=== PATIENT | female | born 1990 ===

== ENCOUNTER → 2016-12-04 | Outpatient (CLI) | payer BC | END | disposition home or self-care (01) | LOC: C.PAPS 10:09 | PROVIDERS: ATTEND Obstetrics & Gynecology | DX: Z01.419 Encounter for gynecological examination (general) (routine) without abnormal findings (principal) ==

== ENCOUNTER 2019-03-01 21:46 | Inpatient (IN) ==
[2019-03-01] MEDS ORDERED: LACTATED RINGER'S 1,000 ML IV PRN (23:13)
[2019-03-01 23:38] LABS: Hematocrit (blood only) 35.1 % (37-47); Hemoglobin 12.6 g/dL (12.0-16.0); Mean Corpuscular Volume 88.2 fL (80-100); Mean Platelet Volume 9.4 fL (7.4-10.4); Platelet Count 314 K/uL (130-400); RDW Coefficient of Variation 11.9 % (11.5-14.5); RDW Standard Deviation 38.3 fL (36.4-46.3); Red Blood Count 3.98 M/uL (4.2-5.4); White Blood Count 11.02 K/uL (4.8-10.8)
[2019-03-01 23:39] LABS: Mean Corpuscular Hgb Conc 35.9 g/dL (32-36)
[2019-03-02] MEDS: LACTATED RINGER'S 1,000 ML IV SCH ×3 (02:20→15:05)
[2019-03-02] MEDS: BUTORPHANOL TARTRATE 2 MG/ML VIAL IV PRN ×2 (02:28→03:48)
[2019-03-02] MEDS ORDERED: ePHEDrine sulfate 50 MG/ML AMP ONE (07:31)
[2019-03-02] MEDS ORDERED: BUPIVACAINE 0.25% 30 ML VIAL ONE (07:31)
[2019-03-02] MEDS ORDERED: fentaNYL citrate 100 MCG/2 ML VIAL ONE (07:31)
[2019-03-02] MEDS ORDERED: fentaNYL 2MCG/ML ROPIV 1.25MG/ML 100 ML BAG EPI ONE (07:32)
--- NOTE | 2019-03-02 08:41 | Anesthesiology Consultation ---
Date of Service March 02, 2019 Assessment & Plan (1) Encounter for pre-operative examination: Chart Review Chart Review: Acceptable Risk for Labor Epidural Consults Requested none ASA ASA2 Proposed Anesthesia Anesthesia Type: Labor Epidural Risk / Benefits Reviewed With: PT / POA / Parent / Guardian, Accepts Plan and Informed Consent Obtained History Height/Weight Height: 5 ft 1 in Weight: 80.957 kg Allergies Allergy/AdvReac Type Severity Reaction Status Date / Time No Known Drug Allergies AdvReac Unknown Verified 03/01/19 22:08 Medications Home Medications Medication Instructions Recorded Confirmed Last Taken vit 98-[id number]-[id number] 1 tab PO DAILY 03/01/19 03/02/19 02/28/19 21:00 [ + DHA] 1 Active Medications Generic Name Dose Route Start Last Admin Trade Name Freq PRN Reason Stop Dose Admin Butorphanol Tartrate 1 mg 03/02/19 00:20 03/02/19 03:48 Stadol IV 04/01/19 00:19 1 mg Q1HWA PRN Administration Pain Lactated Ringer's 1,000 mls @ 125 mls/hr 03/01/19 23:15 03/02/19 07:51 Lr IV 03/03/19 23:14 125 mls/hr .Q8H SIXTO Administration Past Medical History Medical History Congenital hip dysplasia diagnosed at age 4 [place] teeth removed 2015;2013 Past Family History Family History Grandfather (Paternal) Diabetes Past Surgical History Surgical History History of hip replacement 2014 Past Anesthesia History No Hx of Anesthesia Complications and No Family Hx of Anesthesia Complications History of PONV No Motion Sickness Screening History of Motion Sickness: No Social History Smoking Status: Never smoker Do You Dip or Chew Tobacco: No Hx Alcohol Use: No Hx Substance Use: No substance use type: does not use Exercise / Class Metabolic Activity II 4-5 Yardwork/Stairs/Walk up hill Physical Exam Vital Signs Last Vital Signs Temp 98.4 F 03/02/19 07:12 Pulse 93 H 03/02/19 08:38 Resp 20 03/02/19 07:12 BP 115/74 03/02/19 08:03 Pulse Ox 93 03/02/19 08:38 ENMT Mouth: no dentition abnormality Thyromental Distance: > or= 3.5 Finger Breadths Mallampati Class: II Neck normal visual inspection Respiratory normal respiratory effort Auscultation: lungs clear to auscultation bilaterally Cardiovascular Rate/Rhythm: regular rate and regular rhythm Testing Laboratory Results 03/01/19 23:31
[2019-03-02] MEDS ORDERED: NALOXONE HCL 0.4 MG/1 ML VIAL/CARP IV PRN ×2 (09:03→16:50)
[2019-03-02] MEDS ORDERED: fentaNYL 2MCG/ML ROPIV 1.25MG/ML 100 ML BAG EPI PRN (09:03)
[2019-03-02] MEDS ORDERED: NALBUPHINE HCL INJ 10 MG/ML AMP IV PRN ×2 (09:03→16:50)
[2019-03-02] MEDS ORDERED: ePHEDrine sulfate 50 MG/ML AMP IV PRN ×2 (09:03→16:50)
[2019-03-02] MEDS ORDERED: DiphenhydrAMINE HCL 50 MG/ML VIAL IV PRN ×2 (09:03→16:50)
[2019-03-02] MEDS ORDERED: NALOXONE HCL 1 MG in SODIUM CHLORIDE 0.9% 1000ML 1,000 ML IV PRN ×2 (09:03→16:50)
[2019-03-02] MEDS ORDERED: LACTATED RINGER'S 1,000 ML IV PRN ×2 (09:03→09:51)
[2019-03-02] MEDS ORDERED: ONDANSETRON INJ 2 MG/ML 2 ML VIAL IV PRN ×2 (09:03→16:50)
[2019-03-02] MEDS ORDERED: OXYTOCIN 30 UNITS/500 ML BAG IV PRN (09:51)
[2019-03-02] MEDS ORDERED: CITRIC ACID/SODIUM CITRATE 15 ML UDC ONE (15:31)
[2019-03-02] MEDS ORDERED: OXYTOCIN 10 UNITS/ML VIAL ONE ×2 (15:50→16:53)
[2019-03-02] MEDS ORDERED: LIDOCAINE/EPINEPHRINE 2% 1:200,000 20 ML SDV ONE (15:50)
[2019-03-02] MEDS ORDERED: LACTATED RINGER'S 1,000 ML IV SCH ×3 (16:00→17:30)
[2019-03-02] MEDS ORDERED: cefOXitin 2,000 MG in DEXTROSE 5% 50 ML IV SCH (16:15)
[2019-03-02] MEDS ORDERED: MoRPHine SULFATE PF 1 MG/ML 10 ML AMP/VIAL ONE (16:35)
[2019-03-02] MEDS ORDERED: NALOXONE HCL 0.08 MG in SYRINGE 1.8 ML IV PRN (16:50)
[2019-03-02] MEDS ORDERED: MEPERIDINE HCL 25 MG/ML CARP IV PRN (16:50)
[2019-03-02] MEDS ORDERED: MoRPHine SULFATE PF 1 MG/ML 10 ML AMP/VIAL INT SPINAL ONE (16:50)
[2019-03-02] MEDS ORDERED: LACTATED RINGER'S 500 ML IV PRN (16:50)
[2019-03-02] MEDS ORDERED: DC INTRASPINAL MORPHINE SCH (17:00)
[2019-03-02] MEDS ORDERED: NO NARCOTICS OR SEDATIVES SCH (17:00)
[2019-03-02] MEDS ORDERED: SODIUM CHLORIDE 0.9% 1000ML 1,000 ML IV SCH (17:00)
[2019-03-02] MEDS ORDERED: DIPHTHERIA/TETANUS/PERTUSSIS 0.5 ML SYR/VIAL IM ONE (17:23)
[2019-03-02] MEDS ORDERED: SENNA 8.6 MG TAB PO PRN (17:23)
[2019-03-02] MEDS ORDERED: HYDROCORTISONE ACETATE 25 MG SUPP PR PRN (17:23)
[2019-03-02] MEDS ORDERED: MEPERIDINE HCL 50 MG/ML CARP IV PRN (17:23)
[2019-03-02] MEDS ORDERED: MAGNESIUM HYDROXIDE SUSP 30 ML UDC PO PRN (17:23)
[2019-03-02] MEDS ORDERED: SUPERCREAM 0.870% 15 GM JAR EXT PRN (17:23)
[2019-03-02] MEDS ORDERED: BENZOCAINE 20% AER SPR 82.5 GM CAN EXT PRN (17:23)
--- NOTE | 2019-03-02 17:23 | Post Operative Brief Note ---
Immediate Post Op Note v1 Date of Surgery March 02, 2019 cephalopelvic disproportion non reassuring heart rate Pre & Post Diagnosis Operation Date: 03/02/19 15:55 <No data on this case meets the specified criteria> cephalopelvic disproportion nonreassuring heart rate Procedure primary low segment cesareansection Operation Date: 03/02/19 15:55 <No data on this case meets the specified criteria> Surgeon Estevan Shay MD [employer] clark Estimated Blood Loss 600 Findings Consistent with Post-Op Diagnosis
--- NOTE | 2019-03-02 17:29 | Anesthesiology Progress Note ---
Date of Service March 02, 2019 Anesthesia Post Procedure Vital Signs Vital Signs: Temp Pulse Resp BP Pulse Ox 03/02/19 17:26 113 H 123/69 03/02/19 17:23 125 H 79 L 03/02/19 16:13 96 H 20 98 03/02/19 16:08 101 H 98 03/02/19 16:03 100 H 99 03/02/19 16:02 96 H 125/80 03/02/19 15:58 97 H 100 03/02/19 15:53 100 H 99 03/02/19 15:48 113 H 97 03/02/19 15:47 98 H 115/77 03/02/19 15:34 96 H 94 03/02/19 15:33 90 20 100 03/02/19 15:31 87 106/65 03/02/19 15:28 96 H 100 03/02/19 15:23 92 H 100 03/02/19 15:18 82 100 03/02/19 15:16 83 106/62 03/02/19 15:13 95 H 100 03/02/19 15:08 83 100 03/02/19 15:03 88 99 03/02/19 15:02 86 18 105/62 03/02/19 15:00 107 H 89 L 03/02/19 14:58 90 99 03/02/19 14:53 92 H 100 03/02/19 14:48 92 H 126/80 100 03/02/19 14:43 88 100 03/02/19 14:38 88 100 03/02/19 14:33 89 100 03/02/19 14:32 78 20 124/78 93 03/02/19 14:28 78 100 03/02/19 14:23 84 100 03/02/19 14:18 73 100 03/02/19 14:17 74 103/63 03/02/19 14:13 82 100 03/02/19 14:08 83 100 03/02/19 14:03 80 100 03/02/19 14:02 78 20 106/63 03/02/19 13:58 75 100 03/02/19 13:53 81 100 03/02/19 13:52 84 93 03/02/19 13:48 90 100 03/02/19 13:47 85 111/74 03/02/19 13:43 80 100 03/02/19 13:38 93 H 100 03/02/19 13:33 92 H 100 03/02/19 13:31 73 18 113/75 03/02/19 13:28 82 100 03/02/19 13:23 79 100 03/02/19 13:18 83 112/73 99 03/02/19 13:13 85 100 03/02/19 13:08 89 100 03/02/19 13:03 95 H 20 99 03/02/19 13:01 84 117/79 92 03/02/19 12:58 73 100 03/02/19 12:53 91 H 98 03/02/19 12:50 98.2 F 91 H 20 112/73 03/02/19 12:48 91 H 97 03/02/19 12:43 91 H 100 03/02/19 12:39 98 H 89 L 03/02/19 12:38 83 100 03/02/19 12:33 76 115/70 99 03/02/19 12:28 78 98 03/02/19 12:23 73 98 03/02/19 12:18 84 99 03/02/19 12:17 82 110/73 03/02/19 12:13 75 100 03/02/19 12:08 76 100 03/02/19 12:03 69 18 116/73 100 03/02/19 12:02 87 94 03/02/19 11:58 86 100 03/02/19 11:57 66 85 L 03/02/19 11:53 78 100 03/02/19 11:48 71 100 03/02/19 11:46 75 116/76 03/02/19 11:45 79 91 03/02/19 11:43 70 100 03/02/19 11:38 73 99 03/02/19 11:33 67 100 03/02/19 11:31 68 18 115/76 03/02/19 11:28 82 100 03/02/19 11:23 72 100 03/02/19 11:18 71 100 03/02/19 11:17 68 116/73 03/02/19 11:13 76 100 03/02/19 11:12 74 86 L 03/02/19 11:08 74 100 03/02/19 11:03 70 100 03/02/19 11:01 80 20 116/68 03/02/19 11:00 98.1 F 20 03/02/19 10:58 65 99 03/02/19 10:53 67 100 03/02/19 10:48 64 20 116/69 100 03/02/19 10:43 78 100 03/02/19 10:38 76 100 03/02/19 10:33 83 109/58 L 92 03/02/19 10:28 84 100 03/02/19 10:23 70 100 03/02/19 10:18 79 20 109/71 100 03/02/19 10:16 88 93 03/02/19 10:13 80 100 03/02/19 10:08 68 100 03/02/19 10:03 74 110/70 100 03/02/19 09:58 98.1 F 78 20 100 03/02/19 09:53 98 H 100 03/02/19 09:48 84 100 03/02/19 09:43 80 99 03/02/19 09:42 75 18 94/57 L 03/02/19 09:39 75 98/58 L 03/02/19 09:38 73 100 03/02/19 09:33 70 20 105/60 100 03/02/19 09:28 76 100 03/02/19 09:27 71 100/64 03/02/19 09:23 81 103/64 100 03/02/19 09:18 81 100 03/02/19 09:15 75 96/57 L 03/02/19 09:13 75 95/53 L 100 03/02/19 09:11 83 103/57 L 03/02/19 09:09 87 103/58 L 03/02/19 09:08 81 99 03/02/19 09:07 77 20 102/55 L 03/02/19 09:05 91 H 102/64 03/02/19 09:03 90 100/61 97 03/02/19 09:02 84 107/64 03/02/19 08:58 90 98 03/02/19 08:53 99 H 97 03/02/19 08:48 94 H 100 03/02/19 08:43 90 100 03/02/19 08:40 89 92 03/02/19 08:38 93 H 93 03/02/19 08:33 90 92 03/02/19 08:28 91 H 94 04/28/19 08:25 88 92 03/02/19 08:23 86 94 03/02/19 08:19 91 H 94 03/02/19 08:18 96 H 95 03/02/19 08:14 96 H 93 03/02/19 08:13 92 H 95 03/02/19 08:09 91 H 94 03/02/19 08:08 90 96 03/02/19 08:03 96 H 20 115/74 93 03/02/19 07:13 84 120/85 03/02/19 07:12 98.4 F 20 03/02/19 06:14 79 116/80 03/02/19 05:00 98.1 F 20 03/02/19 03:10 86 111/71 03/02/19 03:00 98.2 F 18 03/02/19 02:56 96 H 109/70 03/02/19 02:38 104 H 117/73 03/02/19 02:11 93 H 110/72 03/02/19 01:00 98.2 F 20 03/01/19 22:06 98.4 F 96 H 22 128/77 Pain Intensity Bilateral Abdomen: Pain Intensity: 0 Notes Mental Status: alert / awake / arousable and participated in evaluation Nausea / Vomiting: adequately controlled Pain: adequately controlled Airway Patency, RR, SpO2: stable & adequate BP & HR: stable & adequate Hydration State: stable & adequate Anesthetic Complications: no major complications apparent and Pt Satisfied with anesthetic care
[2019-03-02] MEDS ORDERED: OXYTOCIN 20 UNITS in LACTATED RINGER'S 1,000 ML IV SCH (17:30)
[2019-03-02] MEDS: KETOROLAC 30 MG/ML VIAL IV PRN (19:26)
--- NOTE | 2019-03-02 19:59 | History and Physical Report ---
DATE OF ADMISSION: 03/01/2019 CHIEF COMPLAINT: Intrauterine at term, ruptured membranes, arrest of labor. HISTORY OF PRESENT ILLNESS: The patient is a 28-year-old 1, para 0. She had an uneventful course. Her due date is 02/26/2019. She was admitted with spontaneous rupture of membranes. She contracted unstimulated during the night. Eventually, she got a couple doses of Stadol, the contractions were very painful and she requested and received epidural. At the time she got the epidural, she was still about not quite 2 cm. We then stimulated her labor with IV Pitocin and got her to about 4 cm. She had an arrest of labor at 4 cm, both in dilatation of the cervix in descent of the head at about a 0 station and we had to turn the Pitocin off because of a nonreassuring heart rate tracing with the Pitocin on. She also has a history of left-sided hip problems. She had dysplasia. 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 She had to have a reconstructive procedure done at age 2-1/2 at [facility] and then in 2014, she had total left hip replacement. PAST MEDICAL HISTORY: No known drug allergies. PAST SURGICAL HISTORY: Two hip operations, wisdom teeth. MEDICAL HISTORY: History of rheumatic fever, heart disease, heart murmur, diabetes, tuberculosis. SOCIAL HISTORY: No smoking. No excessive alcohol intake. Works at [employer]. FAMILY HISTORY: Mom is 52 in good health. Father 50 in good health. One brother in good health. REVIEW OF SYSTEMS: HEAD: No symptoms of frequent or severe headaches. EYES: No symptoms of blurred vision, double vision. EARS: No symptoms of frequent ear infection, difficulty hearing. PHYSICAL EXAMINATION: GENERAL: Well-developed, well-nourished 28-year-old white female, alert, oriented x3 and cooperative in no acute distress, appeared her stated age. EYES: Conjunctivae are pink. Sclerae white, no evidence of jaundice. EARS: Had normal light reflex bilaterally. NOSE: Had normal mucosa. Septum is midline. There were no polyps. THROAT: No erythema or evidence of infection. Teeth are in good state of repair. HEAD: Was normocephalic, normal distribution of hair. NECK: Supple. Trachea midline. Thyroid is not enlarged. There is no adenopathy appreciated. Both carotids are of good intensity. CHEST: Clear to auscultation and percussion. No wheezes, rales or rhonchi appreciated. HEART: Regular rhythm. S1, S2 were normal. ABDOMEN: Revealed a term size fetus. There was no CVA tenderness. PELVIC: 0 station, vertex. Cervix 100% effaced, 4 cm. MUSCULOSKELETAL: No calf tenderness. She had a scar on her left hip. IMPRESSIONS OF THIS CASE: Status post 2 major hip surgeries, status post wisdom teeth removal and cephalopelvic disproportion.
[2019-03-02] MEDS: SIMETHICONE 80 MG CHEW PO SCH (21:12)
[2019-03-02] MEDS: DOCUSATE SODIUM 100 MG CAP PO SCH (21:12)
--- NOTE | 2019-03-02 21:28 | Operative Report ---
DATE OF OPERATION: 03/02/2019 PROCEDURE: Primary low segment section. INDICATIONS FOR SURGERY: Cephalopelvic disproportion, nonreassuring heart rate tracing. PREOPERATIVE DIAGNOSIS: Cephalopelvic disproportion, nonreassuring heart rate tracing. SURGEON: Tre Shay MD MANAGEMENT NURSE RN: Dale Andrew MD ESTIMATED BLOOD LOSS: 700 mL. ANESTHESIA: Epidural. OPERATIVE FINDINGS AND PROCEDURE: The patient was brought to the OR table. Epidural was topped off. Guillaume catheter was inserted aseptically in the bladder, connected to gravity drainage. Compression stockings were applied. Lower abdomen was painted with an alcohol based sterilizing solution, draped in the usual sterile fashion. Adequacy of the anesthesia was checked and found to be good. A Pfannenstiel incision was then made and carried down to the anterior fascia by sharp dissection. Hemostasis was secured by electrocauterization. Fascia was incised transversely from the underlying muscle by blunt and sharp dissection. Recti muscles were in the midline. Peritoneum was carefully raised and entered. Then a bladder blade was used to retract the bladder. Incision was made above the vesicouterine fold. The bladder was undermined bluntly. Retractor was used to retract the top of the bladder. Lower uterine segment was scored with a knife and then entered with scissors. Incision was extended laterally with 2 hands. Cloud Security Architect's hand was inserted into the uterine cavity. The head was delivered through the incision. With fundal pressure, the body was delivered. was suctioned through the mouth and the nose. Cord was clamped and cut. Infant was attended by the chips screen tender who was present and scrubbed at the time of delivery. Cord blood was taken. The placenta was removed manually. Uterus, tubes, and ovaries were brought out through the incision. The angles of the myometrial defect were tagged with a ring forceps. A 10 units of Pitocin was injected into the uterus. The myometrial layer was approximated with a continuous interlocking suture of chromic catgut. Then the fascia was approximated in a separate layer with a continuous layer of heavy Vicryl. Two interrupted [id number] sutures of heavy Vicryl were used to complete hemostasis, one in the center of the defect and one just to the left side. Then the peritoneal edges were restored with a continuous plain suture. This restored the integrity of the vesicouterine fold. The pelvis was cleansed of all blood clots and debris. Uterus, tubes, and ovaries were reinserted into the abdominal cavity. Packs were removed and then a careful anatomical approximation of the anterior abdominal wall was performed. Peritoneum was closed with a mattress suture of chromic catgut. Recti muscles were approximated with interrupted [id number] suture of chromic catgut. The fascia was closed with continuous interlocking suture of Vicryl on each side, tied in the midline. SubQ was approximated with a running plain. The skin edges were approximated with staple clips. The patient tolerated these procedures well and left the OR in good condition. I attest to the content of the Intraoperative Record and any orders documented therein. Any exception s are noted below.
[2019-03-03] MEDS: KETOROLAC 30 MG/ML VIAL IV PRN ×2 (04:12→10:22)
[2019-03-03] MEDS ORDERED: CITRIC ACID/SODIUM CITRATE 15 ML UDC PO SCH (06:00)
--- NOTE | 2019-03-03 07:22 | Anesthesiology Progress Note ---
Date of Service March 03, 2019 Anesthesia Post Procedure Vital Signs Vital Signs: Temp Pulse Pulse Resp BP BP Pulse Ox 03/03/19 05:35 18 99 03/03/19 04:30 36.7 C 100 H 18 110/70 99 03/03/19 03:39 16 100 03/03/19 02:30 18 99 03/03/19 01:30 18 99 03/03/19 00:09 36.8 C 94 H 18 102/68 99 03/02/19 23:00 18 96 03/02/19 22:00 36.9 C 106 H 18 108/68 96 03/02/19 21:00 36.8 C 88 18 104/68 96 03/02/19 20:04 102 H 134/70 96 03/02/19 19:59 99 H 96 03/02/19 19:54 103 H 93 03/02/19 19:52 102 H 94 03/02/19 19:49 93 H 95 03/02/19 19:44 95 H 119/70 96 03/02/19 19:39 99 H 97 03/02/19 19:34 93 H 18 116/73 98 03/02/19 19:29 95 H 98 03/02/19 19:24 96 H 125/77 98 03/02/19 19:19 97 H 98 03/02/19 19:14 98 H 122/73 96 03/02/19 19:09 97 H 99 03/02/19 19:04 102 H 18 120/67 99 03/02/19 18:59 108 H 98 03/02/19 18:54 108 H 122/72 100 03/02/19 18:49 116 H 98 03/02/19 18:44 103 H 120/76 99 03/02/19 18:39 94 H 98 03/02/19 18:35 36.5 C 94 H 16 98 03/02/19 18:34 95 H 15 110/58 L 98 03/02/19 18:29 97 H 98 03/02/19 18:28 15 03/02/19 18:24 101 H 116/58 L 100 03/02/19 18:20 122 H 68 L 03/02/19 18:19 123 H 97 03/02/19 18:18 22 03/02/19 18:14 123 H 75 L 03/02/19 18:09 123 H 100 03/02/19 18:08 18 03/02/19 18:04 119 H 117/65 98 03/02/19 18:01 111 H 90 03/02/19 17:58 117 H 20 91 03/02/19 17:54 112 H 78 L 03/02/19 17:53 112 H 100 03/02/19 17:48 120 H 99 03/02/19 17:44 151 H 117/57 L 03/02/19 17:43 128 H 99 03/02/19 17:38 107 H 18 99 03/02/19 17:34 126 H 116/73 03/02/19 17:33 117 H 94 03/02/19 17:28 36.9 C 120 H 20 98 03/02/19 17:26 113 H 123/69 03/02/19 17:23 125 H 79 L 03/02/19 16:13 96 H 20 98 03/02/19 16:08 101 H 98 03/02/19 16:03 100 H 99 03/02/19 16:02 96 H 125/80 03/02/19 15:58 97 H 100 03/02/19 15:53 100 H 99 03/02/19 15:48 113 H 97 03/02/19 15:47 98 H 115/77 03/02/19 15:34 96 H 94 03/02/19 15:33 90 20 100 03/02/19 15:31 87 106/65 03/02/19 15:28 96 H 100 03/02/19 15:23 92 H 100 03/02/19 15:18 82 100 03/02/19 15:16 83 106/62 03/02/19 15:13 95 H 100 03/02/19 15:08 83 100 03/02/19 15:03 88 99 03/02/19 15:02 86 18 105/62 03/02/19 15:00 107 H 89 L 03/02/19 14:58 90 99 03/02/19 14:53 92 H 100 03/02/19 14:48 92 H 126/80 100 03/02/19 14:43 88 100 03/02/19 14:38 88 100 03/02/19 14:33 89 100 03/02/19 14:32 78 20 124/78 93 03/02/19 14:28 78 100 03/02/19 14:23 84 100 03/02/19 14:18 73 100 03/02/19 14:17 74 103/63 03/02/19 14:13 82 100 03/02/19 14:08 83 100 03/02/19 14:03 80 100 03/02/19 14:02 78 20 106/63 03/02/19 13:58 75 100 03/02/19 13:53 81 100 03/02/19 13:52 84 93 03/02/19 13:48 90 100 03/02/19 13:47 85 111/74 03/02/19 13:43 80 100 03/02/19 13:38 93 H 100 03/02/19 13:33 92 H 100 03/02/19 13:31 73 18 113/75 03/02/19 13:28 82 100 03/02/19 13:23 79 100 03/02/19 13:18 83 112/73 99 03/02/19 13:13 85 100 03/02/19 13:08 89 100 03/02/19 13:03 95 H 20 99 03/02/19 13:01 84 117/79 92 03/02/19 12:58 73 100 03/02/19 12:53 91 H 98 03/02/19 12:50 36.8 C 91 H 20 112/73 03/02/19 12:48 91 H 97 03/02/19 12:43 91 H 100 03/02/19 12:39 98 H 89 L 03/02/19 12:38 83 100 03/02/19 12:33 76 115/70 99 03/02/19 12:28 78 98 03/02/19 12:23 73 98 03/02/19 12:18 84 99 03/02/19 12:17 82 110/73 03/02/19 12:13 75 100 03/02/19 12:08 76 100 03/02/19 12:03 69 18 116/73 100 03/02/19 12:02 87 94 03/02/19 11:58 86 100 03/02/19 11:57 66 85 L 03/02/19 11:53 78 100 03/02/19 11:48 71 100 03/02/19 11:46 75 116/76 03/02/19 11:45 79 91 03/02/19 11:43 70 100 04/28/19 11:38 73 99 03/02/19 11:33 67 100 03/02/19 11:31 68 18 115/76 03/02/19 11:28 82 100 03/02/19 11:23 72 100 03/02/19 11:18 71 100 03/02/19 11:17 68 116/73 03/02/19 11:13 76 100 03/02/19 11:12 74 86 L 03/02/19 11:08 74 100 03/02/19 11:03 70 100 03/02/19 11:01 80 20 116/68 03/02/19 11:00 36.7 C 20 03/02/19 10:58 65 99 03/02/19 10:53 67 100 03/02/19 10:48 64 20 116/69 100 03/02/19 10:43 78 100 03/02/19 10:38 76 100 03/02/19 10:33 83 109/58 L 92 03/02/19 10:28 84 100 03/02/19 10:23 70 100 03/02/19 10:18 79 20 109/71 100 03/02/19 10:16 88 93 03/02/19 10:13 80 100 03/02/19 10:08 68 100 03/02/19 10:03 74 110/70 100 03/02/19 09:58 36.7 C 78 20 100 03/02/19 09:53 98 H 100 03/02/19 09:48 84 100 03/02/19 09:43 80 99 03/02/19 09:42 75 18 94/57 L 03/02/19 09:39 75 98/58 L 03/02/19 09:38 73 100 03/02/19 09:33 70 20 105/60 100 03/02/19 09:28 76 100 03/02/19 09:27 71 100/64 03/02/19 09:23 81 103/64 100 03/02/19 09:18 81 100 03/02/19 09:15 75 96/57 L 03/02/19 09:13 75 95/53 L 100 03/02/19 09:11 83 103/57 L 03/02/19 09:09 87 103/58 L 03/02/19 09:08 81 99 03/02/19 09:07 77 20 102/55 L 03/02/19 09:05 91 H 102/64 03/02/19 09:03 90 100/61 97 03/02/19 09:02 84 107/64 03/02/19 08:58 90 98 03/02/19 08:53 99 H 97 03/02/19 08:48 94 H 100 03/02/19 08:43 90 100 03/02/19 08:40 89 92 03/02/19 08:38 93 H 93 03/02/19 08:33 90 92 03/02/19 08:28 91 H 94 03/02/19 08:25 88 92 03/02/19 08:23 86 94 03/02/19 08:19 91 H 94 03/02/19 08:18 96 H 95 03/02/19 08:14 96 H 93 03/02/19 08:13 92 H 95 03/02/19 08:09 91 H 94 03/02/19 08:08 90 96 03/02/19 08:03 96 H 20 115/74 93 Pain Intensity Bilateral Abdomen: Pain Intensity: 1 Notes Mental Status: alert / awake / arousable Patient Amnestic to Procedure: Yes Nausea / Vomiting: adequately controlled Pain: adequately controlled Airway Patency, RR, SpO2: stable & adequate BP & HR: stable & adequate Hydration State: stable & adequate Neuraxial Anesthesia: was administered and sensory block is resolving Anesthetic Complications: no major complications apparent and Pt Satisfied with anesthetic care
[2019-03-03 07:49] LABS: Hematocrit (blood only) 29.9 % (37-47); Hemoglobin 10.4 g/dL (12.0-16.0); Mean Corpuscular Hgb Conc 34.8 g/dL (32-36); Mean Corpuscular Volume 89.3 fL (80-100); Mean Platelet Volume 9.1 fL (7.4-10.4); Platelet Count 243 K/uL (130-400); RDW Coefficient of Variation 11.9 % (11.5-14.5); RDW Standard Deviation 38.9 fL (36.4-46.3); Red Blood Count 3.35 M/uL (4.2-5.4); White Blood Count 12.24 K/uL (4.8-10.8)
[2019-03-03 07:50] LABS: Basophils # (auto) 0.03 K/uL (0-0.2); Basophils % (auto) 0.2 %; Eosinophils # (auto) 0.13 K/uL (0-0.5); Eosinophils % (auto) 1.1 %; Immature Granulocytes # (auto) 0.05 K/uL (0.00-0.02); Immature Granulocytes % (auto) 0.4 %; Lymphocytes # (auto) 1.31 K/uL (1.2-3.4); Lymphocytes % (auto) 10.7 %; Monocytes # (auto) 1.01 K/uL (0.11-0.59); Monocytes % (auto) 8.3 %; Neutrophils # (auto) 9.71 K/uL (1.4-6.5); Neutrophils % (auto) 79.3 %
[2019-03-03] MEDS: SIMETHICONE 80 MG CHEW PO SCH ×4 (09:25→21:22)
[2019-03-03] MEDS: FERROUS SULFATE 325 MG TAB PO SCH ×2 (09:25→10:21)
[2019-03-03] MEDS: PRENATAL VITAMIN 1 TAB PO SCH (09:26)
[2019-03-03] MEDS: DOCUSATE SODIUM 100 MG CAP PO SCH ×2 (10:22→21:22)
[2019-03-03] MEDS ORDERED: MEPERIDINE HCL 50 MG/ML CARP IV PRN (10:50)
[2019-03-03] MEDS ORDERED: PROMETHAZINE HCL 25 MG in SODIUM CHLORIDE 0.9% 50 ML IV PRN (10:50)
[2019-03-03] MEDS ORDERED: KETOROLAC 30 MG/ML VIAL IV PRN (10:51)
[2019-03-03] MEDS ORDERED: ONDANSETRON INJ 2 MG/ML 2 ML VIAL IV PRN (10:51)
[2019-03-03] MEDS ORDERED: DiphenhydrAMINE HCL 50 MG/ML VIAL IV PRN (10:51)
--- NOTE | 2019-03-03 12:07 | Obstetrical Progress Note ---
Date of Service March 03, 2019 Physical Exam Physical Exam: abdomen soft and non tender vaginal bleeding scant to moderate bandage removed incision is clean and dry no calf tenderness ambulating well Results & Data Vital Signs (Past 12 Hours) Vital Signs Temp Pulse Resp BP Pulse Ox 03/03/19 09:30 37.1 C 98 H 14 103/70 98 03/03/19 05:35 18 99 03/03/19 04:30 36.7 C 100 H 18 110/70 99 03/03/19 03:39 16 100 03/03/19 02:30 18 99 03/03/19 01:30 18 99 03/03/19 00:09 36.8 C 94 H 18 102/68 99
[2019-03-03] MEDS: IBUPROFEN 600 MG TAB PO PRN ×3 (14:00→23:30)
[2019-03-03] MEDS: OXYCODONE/ACETAMINOPHEN 5mg/325mg TAB PO PRN ×3 (14:00→23:29)
[2019-03-03] MEDS ORDERED: BISACODYL 5 MG TABEC PO SCH (20:00)
--- OUTSIDE RECORDS SUMMARY | 2019-03-03 22:41 | External Medical Summary | Continuity of Care Document ---
:1990 Author Name Andrew Alejandra, Provider Address Unavailable Unavailable , Care Team Providers Name Role Phone Roger Alejandra, Gerald Jaimes Unavailable [email or web address] [email or web address], UNKNOWN Unavailable Unavailable Unavailable Unavailable Unavailable Problems Dysmenorrhea (625.3) (N94.6) Encounter for gynecological examination without abnormal finding (V72.31) (Z01.419) IUD check up (V25.42) (Z30.431) Allergies and Adverse Reactions No Known Drug Allergies (Allergy) Medications Excedrin Migraine TABS Refills: 0 Ibuprofen CAPS Refills: 0 Ortho-Novum 1/35 (28) 1-35 MG-MCG Oral Tablet; TAKE 1 TABLET EVERY DAY Ny Duran Start: 04-Dec-2016 Quantity: 28 Refills: 12 Procedures History of Oral Surgery Tooth Extraction Status: Completed History of Total Hip Replacement Status: Completed Immunizations Immunizations not documented Social History - Smoking Status Never smoker Plan of Treatment Planned Observations Planned Goals not documented Results No Known Results Results not documented
[2019-03-04] MEDS: OXYCODONE/ACETAMINOPHEN 5mg/325mg TAB PO PRN ×4 (04:23→20:58)
[2019-03-04] MEDS: IBUPROFEN 600 MG TAB PO PRN ×5 (04:23→20:58)
[2019-03-04 07:30] LABS: Hematocrit (blood only) 29.2 % (37-47); Hemoglobin 10.2 g/dL (12.0-16.0)
[2019-03-04] MEDS: SIMETHICONE 80 MG CHEW PO SCH ×3 (08:42→20:58)
[2019-03-04] MEDS: PRENATAL VITAMIN 1 TAB PO SCH (08:42)
[2019-03-04] MEDS: DOCUSATE SODIUM 100 MG CAP PO SCH ×2 (08:43→20:58)
[2019-03-04] MEDS: FERROUS SULFATE 325 MG TAB PO SCH (08:45)
--- NOTE | 2019-03-04 11:01 | Obstetrical Progress Note ---
Date of Service March 04, 2019 Physical Exam Physical Exam: abdomen soft and non tender vaginal bleeding scant to moderate no calf tenderness ambulating well incision is clean and dry Results & Data Vital Signs (Past 12 Hours) Vital Signs Temp Pulse Resp BP Pulse Ox 03/04/19 07:30 36.6 C 88 18 105/70 97 03/03/19 23:05 36.6 C 91 H 18 107/72
[2019-03-04] MEDS ORDERED: BISACODYL 10 MG SUPP PR PRN (17:23)
[2019-03-05] MEDS: IBUPROFEN 600 MG TAB PO PRN ×2 (04:15→09:11)
[2019-03-05] MEDS: OXYCODONE/ACETAMINOPHEN 5mg/325mg TAB PO PRN ×2 (04:16→09:09)
--- NOTE | 2019-03-05 07:30 | Obstetrical Progress Note ---
Date of Service March 05, 2019 Physical Exam Physical Exam: abdomen soft and non tender vaginal bleeding scant to moderate no calf tenderness ambulating well incision is clean and dry Results & Data Vital Signs (Past 12 Hours) Vital Signs Temp Pulse Pulse Resp BP Pulse Ox 03/04/19 23:25 36.7 C 80 18 110/66 98 03/04/19 19:45 36.9 C 92 H 18 103/71 97
[2019-03-05] MEDS: SIMETHICONE 80 MG CHEW PO SCH (09:08)
[2019-03-05] MEDS: PRENATAL VITAMIN 1 TAB PO SCH (09:08)
[2019-03-05] MEDS: FERROUS SULFATE 325 MG TAB PO SCH (09:08)
[2019-03-05] MEDS: DOCUSATE SODIUM 100 MG CAP PO SCH (09:08)
--- NOTE | 2019-03-05 13:51 | Discharge Summary ---
Mrs. Helton was admitted at term, ruptured membranes. She has a significant history of left-sided hip dysplasia. She had a procedure done when she was 2-1/2 years old and then she had a hip replacement in her early 20s, she was admitted in active labor. Eventually she was stimulated with IV Pitocin. We had to cut the Pitocin back several times because she had some nonreassuring heart rate tracings associated with it. She basically had an arrest of labor at about 4 cm receiving maximum stimulation with Pitocin; however, Pitocin had to be cut back due to abnormal heart rate tracings and after an arrest of 4-6 hours she was taken to the OR where she underwent primary low segment section. This was done without difficulty. Average blood loss of about 600 mL. Her preoperative hemoglobin was 12.6, hematocrit 35.1. Postoperatively, hemoglobin fell to 10.2, hematocrit 29.2. Postoperatively she did well. She remained afebrile. She did have prophylactic antibiotics. Her bowel sounds returned within 24 hours. At the time of discharge, she was ambulating well, eating well. She was given prescriptions for Percocet and Motrin for pain control, given the usual instructions to call the office if she had a temperature over 100, call if she had any heavy bleeding and to return in a week for removal of dami.
== END 2019-03-05 11:35 | disposition home or self-care (01) | DRG 788 ==
LOC: OPB 21:46 → 4S1 21:49 → 4S2 03-02 21:05